=== PATIENT | male | born 1990 | race Two or more races ===

== ENCOUNTER 2021-10-28 16:08 | Emergency (ER) | payer BC ==
[2021-10-28 16:31] VITALS: TEMP 99.1; BMI 26.6
[2021-10-28] MEDS ORDERED: FAMOTIDINE 20 MG/50 ML IVPB 20 MG/50 ML MG IVPB ONE ×2 (16:38→16:42)
[2021-10-28 18:10] VITALS: BP 129/86; PULSE 89
== END 2021-10-28 18:48 | disposition home or self-care (01) ==
LOC: JER 16:08
PROC: 3E033GC Introduction of Other Therapeutic Substance into Peripheral Vein, Percutaneous Approach (ICD-10-PCS; principal; 2021-10-28)
DX: T78.40XA Allergy, unspecified, initial encounter (principal)
CPT/HCPCS: 99284-25